=== PATIENT | female | born 1980 | race Caucasian/White ===

== ENCOUNTER → 2022-03-03 | Outpatient (CLI) | payer OTHER, SELFPAY ==
[2022-03-03 11:08] LABS: NATERA MAILED SPECIMEN
[2022-03-03 12:14] LABS: Protein, Urine (Random) 9.7 mg/dL (<11.9); Protein:Creat Ratio 181 mg/g CRE (0-200)
[2022-03-03 12:26] LABS: ALB/GLOB Ratio 0.8 RATIO (0.9-2.4); AST(SGOT) 20 U/L (15-37); Alanine Aminotransfer ALT/SGPT 35 U/L (13-56); Albumin, Serum 3.3 g/dL (3.2-5.0); Alkaline Phosphatase 59 U/L (45-117); Anion Gap 8 (5-15); BUN 9 mg/dL (7-18); BUN/Creat Ratio 13.1 RATIO (10-20); Calcium,Total 9.5 mg/dL (8.5-10.1); Chloride 105 mmol/L (98-107); Creatinine, Serum 0.68 mg/dL (0.55-1.02); EST Glomerular Filtration Rate 101 mL/min (>60); Est Glom Filt Rate - Afr Amer 123 mL/min (>60); Globulin 4.1 g/dL (2.2-4.2); Glucose 77 mg/dL (74-106); Potassium 4.1 mmol/L (3.5-5.1); Protein, Total 7.4 g/dL (6.4-8.2); Sodium Level 138 mmol/L (136-145)
== END | disposition home or self-care (01) ==
PROVIDERS: PCP Family Medicine; Referring Provider Obstetrics & Gynecology; Visit Provider Obstetrics & Gynecology
DX: O09.522 Supervision of elderly multigravida, second trimester (principal)
CPT/HCPCS: 36415; 80053; 82570; 84156

== ENCOUNTER → 2022-03-31 | Outpatient (CLI) | payer OTHER, SELFPAY ==
--- NOTE | 2022-03-31 12:07 | US_ITS ---
STUDY: SECOND AND THIRD TRIMESTER OBSTETRICAL ULTRASOUND REASON FOR EXAM: Female, 41 years old anatomy LMP: 10/31/2021. TECHNIQUE: Transabdominal and Transvaginal TECHNICAL QUALITY: Adequate. PRIOR ULTRASOUND: None. FINDINGS: There is a single intrauterine fetus. The fetus is in a breech presentation. There is demonstrated cardiac activity with a heart rate of 145 bpm. There is a normal amniotic fluid volume. The largest amniotic fluid pocket measures 5.3 cm x 3.5 cm. The amniotic fluid index (KONRAD) is within normal limits. The placenta is anterior in location and is not low lying. There are Grade 0 placental changes. The cervix measures 4.6 cm in length. The bilateral adnexal regions are normal. BIOMETRY: BPD: 4.81 cm: 20 weeks, 4 days HC: 17.96 cm: 20 weeks, 3 days AC: 15 cm: 20 weeks, 2 days FL: 3.16 cm: 90 weeks, 6 days CI: 77% FL/BPD: 66% FL/HC: FL/AC: 21% HC/AC: 1.2 age by current US: 20 weeks, 2 days. JESSICA by current US: 08/16/2022. Estimated weight: 334 grams, +/- 50 grams, 3 %. Age by LMP: 21 weeks, 4 days. JESSICA by LMP: 08/07/2022. ANATOMY: Gender: Female Cranium: Normal lateral ventricles. Normal choroid plexus. Normal cerebellum. Normal cisterna magna. Normal face, nose and lips. Chest: Normal 4-chamber heart. Abdomen/Pelvis: Normal diaphragm. Normal stomach. Normal abdominal wall. Normal cord insertion. The placental cord insertion is located at 1.3 cm away from the end of the placenta. Normal 3 vessel cord. Normal kidneys. Normal bladder. Spine: Normal cervical spine. Normal thoracic spine. Normal lumbar spine. Normal sacrum. Extremities: Normal bilateral upper extremities. Normal bilateral lower extremities. IMPRESSION: Single live uterine gestation with a mean gestational age of 20 weeks and 2 days. The placental cord insertion is located 1.3 cm away from the margin of the placenta. Electronically Signed: Juan Miguel Augustin MD at 13:25 EDT , STUDY: FIRST TRIMESTER OBSTETRICAL ULTRASOUND REASON FOR EXAM: Female, 41 years old . Cervical length. LMP: 10/31/2021. TECHNIQUE: Transvaginal TECHNICAL QUALITY: Adequate. PRIOR ULTRASOUND: None. FINDINGS: The cervical length measures 4.6 cm. US/OB Anatomy Scan IMPRESSION: The cervical length measures 4.6 cm. Electronically Signed: Juan Miguel Augustin MD at 13:26 EDT ,
== END | disposition home or self-care (01) ==
LOC: OPUS 12:05
PROVIDERS: PCP Family Medicine; Visit Provider Nurse Practitioner Women's Health
DX: O09.512 Supervision of elderly primigravida, second trimester (principal); Z36.9 Encounter for antenatal screening, unspecified; Z3A.20 20 weeks gestation of pregnancy
CPT/HCPCS: 76805; 76817

== ENCOUNTER → 2022-05-12 | Outpatient (CLI) | payer OTHER, SELFPAY ==
[2022-05-12 09:42] LABS: Absolute Neutrophil Count 7.6 X10^3/uL (2.0-7.7); Basophil# 0.05 X10^3/uL; Basophil% 0.5 % (0-1); Eosinophil# 0.09 X10^3/uL; Eosinophils% 0.9 % (0-5); Hematocrit 35.2 % (37-47); Hemoglobin 11.6 g/dL (12.0-15.0); Lymphocyte % 16.1 % (19-41); Mean Corpuscular Hgb 28.9 pg (27.0-32.0); Mean Corpuscular Volume 87.6 fL (81-99); Mean Platelet Vol. 11.4 fl (6.2-12.0); Monocyte# 0.49 X10^3/uL; Monocyte% 4.9 % (0-10); NRBC Flagged by Analyzer 0 % (0-5); Neutrophil # 7.62 X10^3/uL (2.7-7.7); Platelet Count 235 K/mm3 (150-450); RBC Distribution Width CV 13.2 % (11.6-14.6); RBC Distribution Width SD 41.6 fl (35.1-43.9); Red Blood Count 4.02 M/mm3 (4.2-5.4); White Blood Count 9.9 K/mm3 (4.4-11.0)
[2022-05-12 09:54] LABS: Glucose Challenge Gest 1H 50g 179 mg/dL (70-140)
[2022-05-12 10:45] LABS: HIV - WCH Non-Reactive (Nonreactive); Syphilis Antibodies Non-reactive
== END | disposition home or self-care (01) ==
LOC: PAVLAB 09:18
PROVIDERS: PCP Family Medicine; Referring Provider Obstetrics & Gynecology; Visit Provider Obstetrics & Gynecology
DX: Z34.90 Encounter for supervision of normal pregnancy, unspecified, unspecified trimester (principal)
CPT/HCPCS: 36415; 82950; 85025; 86703; 86780

== ENCOUNTER → 2022-05-17 | Outpatient (CLI) | payer OTHER, SELFPAY ==
--- NOTE | 2022-05-17 12:52 | US_ITS ---
STUDY: OBSTETRICAL ULTRASOUND - BIOPHYSICAL PROFILE REASON FOR EXAM: Female, 41 years old growth and monitor placenta -- Wkly Tuesday''s beginning 05/17/22.Stop 08/03/22 -- IUGR AND MARGINAL CORD INSERT -- AMA -- GESTATIONAL HYPERTENSION LMP: 10/31/2021. PRIOR ULTRASOUND: Comparison is made with prior study 03/31/2022. TECHNIQUE: Transabdominal TECHNICAL QUALITY: Adequate. FINDINGS: There is a single intrauterine fetus. The fetus is in a breech presentation. There is demonstrated cardiac activity with a heart rate of 162 bpm. There is a normal amniotic fluid volume. The largest amniotic fluid pocket measures 5 cm x 3.4 cm. The amniotic fluid index (KONRAD) is 13.7 cm. The placenta is anterior in location and is not low lying. There are Grade 0 placental changes. Age by LMP: 28 weeks, 2 days. JESSICA by LMP: 08/07/2022. age by prior US: 26 weeks, 6 days. JESSICA by prior US: 08/17/2022. BIOPHYSICAL PROFILE: Breathing Movements (FBM): 2 Gross Body Movements (GBM): 2 Tone (FT): 2 Amniotic Fluid Volume (AFV): 2 TOTAL SCORE: 8 / 8 US/Biophysical Prof W/O Non Stres IMPRESSION: Normal biophysical profile of 01/25. Electronically Signed: Juan Miguel Augustin MD at 10:37 EST ,
== END | disposition home or self-care (01) ==
LOC: OPUS 12:51
PROVIDERS: PCP Family Medicine; Visit Provider Obstetrics & Gynecology
DX: O09.529 Supervision of elderly multigravida, unspecified trimester (principal); Z87.59 Personal history of other complications of pregnancy, childbirth and the puerperium
CPT/HCPCS: 76819

== ENCOUNTER → 2022-05-19 | Outpatient (CLI) | payer OTHER, SELFPAY ==
[2022-05-19 10:57] LABS: Glucose GTT-Gestation. Fasting 82 mg/dL (<105)
[2022-05-19 11:19] LABS: Glucose GTT-Gestational 1 Hr 187 mg/dL (<190)
[2022-05-19 12:35] LABS: Glucose GTT-Gestational 2 Hr 163 mg/dL (<165)
[2022-05-19 13:59] LABS: Glucose GTT-Gestational 3 Hr 74 L (<145)
== END | disposition home or self-care (01) ==
LOC: LAB 09:56
PROVIDERS: PCP Family Medicine; Referring Provider Obstetrics & Gynecology; Visit Provider Obstetrics & Gynecology
DX: Z13.1 Encounter for screening for diabetes mellitus (principal)
CPT/HCPCS: 36415; 82951; 82952

== ENCOUNTER → 2022-05-26 | Outpatient (CLI) | payer OTHER, SELFPAY | END | disposition home or self-care (01) | LOC: LABSPEC 12:08 | PROVIDERS: PCP Family Medicine; Visit Provider Obstetrics & Gynecology | DX: Z34.90 Encounter for supervision of normal pregnancy, unspecified, unspecified trimester (principal) | CPT/HCPCS: 87086; 87088 ==

== ENCOUNTER 2022-06-08 08:30 | Outpatient (RCR) | payer OTHER, SELFPAY | END 2022-06-19 23:59 | LOC: DC 08:30 | PROVIDERS: PCP Family Medicine; Visit Provider Obstetrics & Gynecology | DX: O24.419 Gestational diabetes mellitus in pregnancy, unspecified control (principal); Z3A.00 Weeks of gestation of pregnancy not specified | CPT/HCPCS: 97802; 97803 ==

== ENCOUNTER → 2022-06-18 | Outpatient (CLI) | payer OTHER, SELFPAY ==
[2022-06-18 12:33] LABS: Hepatitis C Antibody Non-Reactive (Nonreactive)
== END | disposition home or self-care (01) ==
LOC: LAB 10:44
PROVIDERS: PCP Family Medicine; Visit Provider Obstetrics & Gynecology
DX: O09.529 Supervision of elderly multigravida, unspecified trimester (principal)
CPT/HCPCS: 36415; 86803; 86850; 86900; 86901

== ENCOUNTER → 2022-07-01 | Outpatient (CLI) | payer OTHER, SELFPAY ==
[2022-07-01 17:21] LABS: Chlamydia Trachomatis by PCR Negative (Negative); Neisserai gonorrhoeae by PCR Negative (Negative); Probe Check PASS; Sample Adequacy Control PASS; Specimen Processing Control PASS
== END | disposition home or self-care (01) ==
PROVIDERS: PCP Family Medicine; Referring Provider Obstetrics & Gynecology; Visit Provider Obstetrics & Gynecology
DX: O09.529 Supervision of elderly multigravida, unspecified trimester (principal); Z3A.00 Weeks of gestation of pregnancy not specified
CPT/HCPCS: 87491; 87591

== ENCOUNTER → 2022-07-16 | Outpatient (CLI) | payer OTHER, SELFPAY | END | disposition home or self-care (01) | PROVIDERS: PCP Family Medicine; Referring Provider Obstetrics & Gynecology; Visit Provider Obstetrics & Gynecology | DX: Z34.90 Encounter for supervision of normal pregnancy, unspecified, unspecified trimester (principal) | CPT/HCPCS: 87081 ==

== ENCOUNTER 2022-08-04 05:07 | Inpatient (IN) | payer OTHER, SELFPAY ==
[2022-08-04] VITALS (28 sets, daily range): BP systolic 97–138; BP diastolic 47–86; PULSE 55–111; RESP 11–18; TEMP 36.1–36.6; O2SAT 95–100; BMI 30.5
[2022-08-04] MEDS: Lactated Ringers 1,000 ML 999 ML IV ×2 (05:50→17:25)
[2022-08-04 06:04] LABS: Absolute Lymphocyte Count 1.63 X10^3/uL (0.83-4.51); Absolute Neutrophil Count 4.4 X10^3/uL (2.0-7.7); Basophil# 0.04 X10^3/uL; Basophil% 0.6 % (0-1); Eosinophil# 0.06 X10^3/uL; Eosinophils% 0.9 % (0-5); Hematocrit 36.8 % (37-47); Hemoglobin 11.9 g/dL (12.0-15.0); Lymphocyte # 1.63 X10^3/ul (0.83-4.51); Lymphocyte % 24.3 % (19-41); Mean Corp Hgb Conc 32.3 g/dL (32-36); Mean Corpuscular Hgb 28.5 pg (27.0-32.0); Mean Platelet Vol. 12.8 fl (6.2-12.0); Monocyte% 7.5 % (0-10); NRBC Flagged by Analyzer 0 % (0-5); Neutrophil # 4.44 X10^3/uL (2.7-7.7); Neutrophil % 66.3 % (47-70); Platelet Count 167 K/mm3 (150-450); RBC Distribution Width CV 14.9 % (11.6-14.6); Red Blood Count 4.18 M/mm3 (4.2-5.4); White Blood Count 6.7 K/mm3 (4.4-11.0)
[2022-08-04 06:20] LABS: Bedside Glucose 76 mg/dL (74-106)
[2022-08-04] MEDS: Lactated Ringers 1,000 ML 150 ML IV (06:25)
[2022-08-04] MEDS: Acetaminophen 500 MG Tablet 1000 MG PO ×2 (07:03→21:05)
[2022-08-04] MEDS: Sodium Citrate/Citric Acid 30 ML UDC PO (07:04)
--- NOTE | 2022-08-04 07:07 | PCM.HP.OB ---
HPI - General General Date of Admission: 08/04/22 HPI Narrative PARVIZ PEREZ, is a 41 y/o@ 39 weeks who presents to L&D for a repeat section. She has a history of one vaginal delivery followed by a section. Due to AMA, gestational diabetes and abnormal placental cord insertion, [facility] recommends delivery at 39 weeks. She initially wanted to , however her cervix is 1/thick/high and not favorable for IOL with prior uterine scar. The decision was made to proceed with a repeat section. Maternal Data Information JESSICA Calculator Estimated Delivery Date Method Current WG Current Estimate 08/07/22 LMP (Certain) 39w 4d PFSH PFSH Medical History History of gestational hypertension History of depression Home Medications ascorbic acid (vitamin C) 500 mg capsule mg PO 02/26/22 [History Last Taken Unknown] calcium citrate 250 mg PO DAILY 02/26/22 [History Last Taken Unknown] doxylamine succinate 25 mg tablet (Unisom (doxylamine)) 25 mg PO QHS PRN 02/26/22 [History Last Taken 08/03/22 21:00] famotidine 20 mg tablet (Pepcid) 20 mg PO DAILY 02/26/22 [History Last Taken 08/03/22 21:00 1 tab] magnesium oxide 500 mg capsule 500 mg PO DAILY 02/26/22 [History Last Taken 08/03/22 09:00] vitamin#30 30 mg iron-10 mg iron-folic acid 1 mg-omg3 capsule cap PO 02/26/22 [History Last Taken Unknown] vitamin E mixed 400 unit capsule unit PO 02/26/22 [History Last Taken Unknown] aspirin 81 mg chewable tablet 81 mg PO DAILY 03/24/22 [History Last Taken 08/03/22 21:00] ondansetron HCl 4 mg tablet 4 mg PO Q8H PRN nausea and vomiting #90 tabs 05/21/22 [Rx Last Taken 08/02/22 09:00] metformin 500 mg tablet 500 mg PO DAILY gdm 08/04/22 [History Last Taken 07/25/22 21:00] Allergy/AdvReac Type Severity Reaction Status Date / Time No Known Allergies Allergy Verified 08/04/22 05:55 Surgical History delivery delivered History of foot surgery History of neck surgery Social History current occupational exposures/hazards: No pets and animals: No Smoking Status: Never smoker alcohol intake: never substance use type: does not use what type of physical activity do you participate in: none seatbelt use: always additional social history: [facility] [address] 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 Date Name GA/Weeks Outcome Route Bth Weight Infant Gen Labor Lgth Anesthesia Del Locatn Provider FOB Unknown summer live - full term 6lbs 7oz Female none Pomerene Vacariello Jebon Unknown 2015 Lewis live - full term 39 [facility] Date: Last Updated by: Tejal Francois no complications Delivery Date: Last Updated by: Tejal Francois GHTN, decels ending in c/s Visit Details Expected Delivery Route/Plan TOLAC patient counseled regarding risks/benefits of trial of labor versus repeat . ACOG/uptodate education given to patient. 89 % likelihood of success per calculator TOLAC consent form signed: 06/18 Labor Preferences- CB/BF classes: [] labor support person: [] labor intervention preferences: [] pain management options preferred: [] cut cord/dad catch: [] : [] PP control planned: [] discussed possible routes of delivery and associated risks: [] special requests: [] Plans Covid status: [] Flu vaccine: [] Tdap vaccine: [] Rhogam: [] LARC form signed: [] Problem list reviewed and updated with the most current plan of care details and appropriate orders placed. Relevant counseling for the gestational age provided. Continue routine care and follow up unless otherwise noted in visit notes/problem list details OB Flowsheet Initial Weight: Not Recorded Date <del>?</del> EGA Weight BP Urine Prot <del>?</del> Glucose FHR FuHt Pres Dilation <del>?</del> Effaced St Visit Note 02/26/22 <del>?</del> 16w 6d 165 lb 134/88 <del>?</del> 150 <del>?</del> SM- LUCAS desires TOLAC no vb lof cramping 03/24/22 <del>?</del> 20w 4d 169 lb 132/85 Negative <del>?</del> Negative 152 <del>?</del> MH-No VB, LOF. Good FM. Feeling movement. Still with nausea but controlled with zofran. 05/26/22 <del>?</del> 29w 4d 177 lb 2 oz 127/85 Negative <del>?</del> Negative 140 29 <del>?</del> JArnold- pt is gestational diabetic and is monitoring glucose and seeing hazardous materials waste technician. She had IUGR but appears to be resolved per mfm. she has one more scan to know more. 06/18/22 <del>?</del> 32w 6d 176 lb 8 oz 131/79 Negative <del>?</del> Negative 145 33 <del>?</del> SM- no vb lof good fm no regular ctx BS controlled with diet SM- TOLAC consent signed, no vb lof good fm no regular ctx BS elevated with holidya- not following diet as closely but watching more, will call next week 07/01/22 <del>?</del> 34w 5d 173 lb 6 oz 129/85 Negative <del>?</del> Negative 140 33 Cephalic <del>?</del> JV- normal growth. was breech on us last week but cephalic today. glucose levels all wnl. 07/16/22 <del>?</del> 36w 6d 172 lb 8 oz 134/89 Negative <del>?</del> Negative 143 36 Cephalic 0.5 <del>?</del> 30 -3 JV- fasting levels over 95-105. starting metformin and twice weekly nsts. deliver at 39 weeks. pt still wants to . will go into more detail depending on cervical dilation. 07/20/22 <del>?</del> 37w 3d 171 lb 9.6 oz 135/86 Negative <del>?</del> Negative 140 Cephalic 0.5 <del>?</del> MH-NST only reactive. Did not start metformin. Glucose all but 1 below 95 and 2 hrs all but 2 below 120. Will discuss with SM 07/23. 07/23/22 <del>?</del> 37w 6d 173 lb 122/80 Negative <del>?</del> Negative 140 <del>?</del> SM- no vb lof good fm n oregular ctx 07/27/22 <del>?</del> 38w 3d 174 lb 2 oz 137/89 Negative <del>?</del> Negative 160 Cephalic 0.5 <del>?</del> 30 -3 JV- nst reactive. cx still not dilated. we talked about risks vs benefits of IOL and she has decided to have a rpt section if by next week still not dilated enough to start pit. pt declines hooper bulb and not a candidate for cytotec. rpt section request sent to clinical group to schedule 07/30/22 <del>?</del> 38w 6d 173 lb 6 oz 128/82 Negative <del>?</del> Negative 135 Cephalic 1 <del>?</del> 40 -3 LC- reactive NST. membranes striped today. c/s scheduled on 08/04 at 7:10. 08/03/22 <del>?</del> 39w 3d 171 lb 2 oz 130/88 Negative <del>?</del> Negative 130 <del>?</del> JV- nst reactive. section scheduled for tomorrow am. ROS Constitutional Constitutional: Denies change in weight, fatigue, fever(s), headache(s), poor appetite or weakness Eyes Eyes: Denies blurry vision, change in vision, seeing flashes or spots in vision ENT HEENT: Denies dizziness, headache(s), loss taste/smell or sore throat Cardiovascular Cardiovascular: Denies chest pain, dizziness, dyspnea, irregular heart rhythm, leg edema, palpitations, rapid heart rate or vomiting Respiratory/Chest Respiratory/Chest: Denies chest tightness, cough, dyspnea or breast pain Gastrointestinal Gastrointestinal: Denies abdominal pain, anorexia, constipation, cramping, diarrhea, hemorrhoids, vomiting or weight changes Genitourinary Genitourinary: Denies dysuria, flank pain, genital lesions, genital pain, urinary frequency or urinary urgency Musculoskeletal Musculoskeletal: Denies back pain, difficulty walking, joint pain, limited range of motion, muscle cramps or numbness Integumentary Integumentary: Denies lesions or unusual bruising Neurologic Neurologic: Denies abnormal movements, abnormal speech, dizziness, numbness, seizure-like activity or syncope Psychiatric Psychiatric: Denies anxiety, behavioral changes, change in appetite, change in libido, cognitive impairment, confusion, depression, difficulty concentrating, hallucinations or suicidal thoughts Endocrine Endocrinology: Denies excessive sweating, polydipsia or polyuria Hematologic/Lymphatic Hematologic/Lymphatic: Denies easy bleeding, easy bruising or lymphadenopathy Allergic/Immunologic Allergic/Immunologic: Denies itchy eyes, lip swelling, seasonal rhinorrhea, rhinitis, throat swelling, tongue swelling, eczemia, wheezing or asthma Vital Signs Vital Signs Vital Signs: 08/04/22 05:41 08/04/22 05:41 08/04/22 05:46 Temperature Temperature Source Pulse Rate 83 79 Respiratory Rate Blood Pressure Blood Pressure Mean Blood Pressure Source Blood Pressure Position Blood Pressure Location Pulse Ox 99 Oxygen Delivery Method 08/04/22 05:46 08/04/22 05:51 08/04/22 05:51 Temperature Temperature Source Pulse Rate 111 H Respiratory Rate Blood Pressure Blood Pressure Mean Blood Pressure Source Blood Pressure Position Blood Pressure Location Pulse Ox 100 99 Oxygen Delivery Method 08/04/22 05:56 08/04/22 05:56 08/04/22 06:01 Temperature Temperature Source Pulse Rate 81 81 Respiratory Rate Blood Pressure Blood Pressure Mean Blood Pressure Source Blood Pressure Position Blood Pressure Location Pulse Ox 99 Oxygen Delivery Method 08/04/22 06:01 08/04/22 06:06 08/04/22 06:06 Temperature Temperature Source Pulse Rate 83 Respiratory Rate Blood Pressure Blood Pressure Mean Blood Pressure Source Blood Pressure Position Blood Pressure Location Pulse Ox 100 100 Oxygen Delivery Method 08/04/22 06:11 08/04/22 06:11 08/04/22 06:10 Temperature 98 F Temperature Source Temporal Pulse Rate 83 100 Respiratory Rate 18 Blood Pressure 131/86 H Blood Pressure Mean 101 Blood Pressure Source Monitor Blood Pressure Position Semi-Fowlers Blood Pressure Location Right Arm Pulse Ox 99 99 Oxygen Delivery Method Room Air Weight Weight: 167 lb Body Mass Index (BMI) 30.5 Physical Exam Const alert, oriented x3, no apparent distress and healthy appearing General Appearance: cooperative; Negative for anxious HEENT normocephalic Face and Sinus: normal facial exam Eyes EOMs intact bilaterally and no scleral icterus General Eye: normal appearance of both eyes Neck full ROM and supple Lymph Lymphatic: no lymphadenopathy noted Chest Chest: abnormal inspection of the chest Resp normal respiratory effort Effort and Inspection: able to speak in complete sentences Cardio regular rate GI soft to palpation and non-tender Inspection: gravid Palpation: soft; Negative for tender external exam normal Back/Spine no CVA tenderness Extremity normal to inspection, full ROM and no clubbing, cyanosis or edema General Extremity: Negative for calf tenderness or edema Skin Lesions: no lesions Rashes: no rashes Psych mental status grossly normal Labs Labs Labs: Blood Type O POSITIVE Antibody Screen NEGATIVE Hct 36.8 % (37-47) L Hgb 11.9 g/dL (12.0-15.0) L Obstetrics US Syphilis Total Ab Non-reactive HIV 1&2 Antibody Non-Reactive (Nonreactive) Glucose 1 Hr 50 gm 179 mg/dL (70-140) H Assessment & Plan (1) Gestational diabetes mellitus (GDM) affecting : COMMENT: Checking BS and nutrition referral sent; did not start metformin (2) Abnormal glucose affecting : COMMENT: 3 Hr GTT (3) AMA (advanced maternal age) multigravida 35+: COMMENT: genetic counseling options discussed and plan NIPT. plan 36 week growth us delivery by 40 weeks. (4) : QUALIFIERS: Weeks of gestation: 39 weeks Qualified Code(s): Z3A.39 - 39 weeks gestation of COMMENT: GBS neg, LUCAS Calvo family. NIPT low risk, abnormal cord insertion & 3% growth, MFM referral- 05/20/22 repeat shows 16th%, continuing with growth follow ups with mfm. (5) History of delivery: COMMENT: plan TOLAC consent signed 06/18, 89% chance of success (6) History of depression: (7) History of gestational hypertension: COMMENT: baseline labs ordered. (8) Supervision of normal : COMMENT: PRR JESSICA 08/07/22, girl, Summer, Neris Vivek (works in [employer]) PLAN: Plan plan for repeat section today ERAS protocol ordered
[2022-08-04] MEDS: Cefazolin 2 GM in 0.9% Normal Saline 100 ML IV (07:16)
--- NOTE | 2022-08-04 08:18 | EX.PCM.OBRPT ---
Assessment & Plan (1) Gestational diabetes mellitus (GDM) affecting : COMMENT: Checking BS and nutrition referral sent; started metformin then stopped. patient declined treatment (2) Abnormal glucose affecting : COMMENT: 3 Hr GTT (3) AMA (advanced maternal age) multigravida 35+: COMMENT: genetic counseling options discussed and plan NIPT. plan 36 week growth us delivery by 40 weeks. (4) : QUALIFIERS: Weeks of gestation: 39 weeks Qualified Code(s): Z3A.39 - 39 weeks gestation of COMMENT: GBS neg, LUCAS Calvo family. NIPT low risk, abnormal cord insertion & 3% growth, MFM referral- 05/20/22 repeat shows 16th%, continuing with growth follow ups with mfm. (5) History of delivery: COMMENT: plan TOLAC consent signed 06/18, 89% chance of success (6) History of depression: (7) History of gestational hypertension: COMMENT: baseline labs ordered. (8) Supervision of normal : COMMENT: PRR JESSICA 08/07/22, girl, [facility], Neris Vivek (works in [employer]) Maternal Data Information JESSICA Calculator Estimated Delivery Date Method Current WG Current Estimate 08/07/22 LMP (Certain) 39w 4d Final JESSICA: 08/07/22 Final JESSICA Source: LMP Gestational age: 39 weeks 4 days Details Operative Information Date of Procedure: 08/04/22 Pre-Operative Diagnosis: @ 39 weeks 4 days, prior section, gestational diabetes, abnormal cord insertion Post-Operative Diagnosis: @ 39 weeks 4 days, prior section, gestational diabetes, abnormal cord insertion Classification: Scheduled Procedure Type: low transverse abrasive grader helper #1: Daniella Ortega Type of Anesthesia: Spinal Anesthesiologist: Eugenio Gallardo Estimated Blood Loss: 500 Findings Description of Procedure: The patient is a 41 y/o @ 39 weeks 4 days presented for repeat . Spinal anesthesia was placed without difficulty. Mckeon catheter was placed. The patient was placed in the dorsal supine position with leftward tilt. Patient was prepped and draped in the normal sterile fashion. Pfannenstiel skin incision was made with the scalpel and carried through to the underlying layer of fascia with the scalpel. Fascia was nicked in the midline and the incision extended laterally. The rectus bellies were dissected off superiorly and inferiorly with out complication both sharply and bluntly. The peritoneum was entered digitally. The incision was stretched and a low transverse uterine incision was made with the scalpel. The 's head was delivered atraumatically followed by the anterior and posterior shoulders without complication the rest of the infant delivered. The cord was clamped and cut and the infant was handed off to awaiting nurse. The placenta was delivered spontaneously immediately following and was noted to be intact and have a three-vessel cord. The uterus was exteriorized cleared of all clots and debris, and the incision was closed in a double layer closure using #1 Vicryl and #1 Monocryl. The ovaries and fallopian tubes were noted to be within normal limits. The uterus was returned to the maternal abdomen and gutters were cleared of all clots and debris. The peritoneum was closed with 3-0 Monocryl in a running fashion. Gloves were changed prior to fascial closure. Fascia was closed with 0 PDS in a running fashion. Subcutaneous tissue was copiously irrigated and the skin was closed with 3-0 Monocryl in a subcuticular fashion. Mepilex dressing was applied without complication. Patient was taken to recovery in stable condition. It was discussed with the patient that based on the clinical information obtained during this encounter, combined with her history, at this time I would recommend for future deliveries if further pregnancies are desired. Presentation: Positive for Vertex Amniotic Fluid Description: Clear Cord Vessel Description: 3 Vessels Cord Entanglement: None A Gender: Female (1 minute): 8 (5 minute): 9 Delayed Cord Clamping: No Complications Risks of Surgery Discussed w/Patient: Bleeding, Anesthesia Risks, Infection, Need for Future C-Sections and Injury to surrounding structure(s) including bowel and bladder Multi Select Codes Urinary/Genital Urinary/Genital CPT Codes: 79995 Delivery [facility]
--- NOTE | 2022-08-04 08:29 | DCINST_ITS ---
Discharge Instructions Diet Discharge Diet: No restrictions Activity Discharge Activity: May Not Drive (for 2 weeks or while taking narcotic pain medications.), May Shower and May Take a Tub Bath (in 7 days.) May resume sexual activity in: 4-6 weeks Weight Bearing Status: Full weight bearing Lifting Restrictions: 20 pounds Dressing / Incision Call your doctor if your incision/area has: Continuous Slow Oozing, Sudden Increased Bleeding, Increased Pain/ Swelling, Increased Redness and Foul Smelling Discharge Call your doctor if you observe: Fever of 101 or Higher and Using more than 1 pad per hour Suture Line Care: Avoid Pulling/Pushing and Avoid Pinching/Bending Cleanse incision/area with: Soap & Water and Keep Dressing Clean & Dry Follow Up Care Please Follow Up With: Regina Quan DO When: Call [phone] to make an appointment for an incision check in 1-2 weeks. Test Results: Test results from this visit will be discussed in further detail at your follow- up appointment, if applicable. Discharge Plan Admission Admit Date/Time: 08/04/22 05:07 Primary Reason for Your Visit: section Attending Provider: Regina Quan Primary Care Provider: Elliot Curry Discharge Orders/Prescriptions Prescriptions: New oxycodone-acetaminophen [Percocet] 5-325 mg tablet 1 tab PO Q4H PRN (Reason: pain) 7 Days Qty: 30 0RF Rx Instructions: 1-2 tabs q 4 hrs as needed for pain naproxen 500 mg tablet 500 mg PO BID PRN (Reason: pain) Qty: 30 0RF Continued PNV #[id number] 30 mg iron-10 mg iron-1 mg capsule PO ascorbic acid (vitamin C) 500 mg capsule PO famotidine [Pepcid] 20 mg tablet 20 mg PO DAILY magnesium oxide 500 mg capsule 500 mg PO DAILY calcium citrate 250 mg calcium tablet 250 mg PO DAILY vitamin E mixed 400 unit capsule PO ondansetron HCl 4 mg tablet 4 mg PO Q8H PRN (Reason: nausea and vomiting) Qty: 90 1RF Discontinued Unisom (doxylamine) 25 mg tablet 25 mg PO QHS PRN (Reason: ) aspirin 81 mg tablet,chewable 81 mg PO DAILY metformin 500 mg tablet 500 mg PO DAILY Rx Instructions: daily before bedtime Referrals / Follow Up: Elliot Curry MD [Primary Care Provider] - Disposition Disposition (needs filled in before D/C Order can be placed): Home, Self Care
[2022-08-04] MEDS: Oxytocin 15 Units/NS 250ml 15 UNITS/250 ML IV.SOLN 83 UNITS IV (08:30)
[2022-08-04] MEDS: proCHLORPERazine 10 MG/2 ML Vial IV (09:42)
[2022-08-04] MEDS: Ketorolac 30 MG/ML Syringe IV ×3 (09:42→21:05)
[2022-08-04 11:06] LABS: Bedside Glucose 100 mg/dL (74-106)
[2022-08-04] MEDS: Lactated Ringers 1,000 ML 100 ML IV (11:45)
[2022-08-04] MEDS: Ondansetron 4 MG/2 ML Vial IV ×2 (11:45→17:02)
--- NOTE | 2022-08-04 16:53 | NURSING ---
pt continues with symptoms of vertigo and N/V with moving; pt to side of bed - became dizzy and started vomiting; pt returned to bed
[2022-08-04 18:00] LABS: Bedside Glucose 90 mg/dL (74-106)
--- NOTE | 2022-08-04 19:13 | NURSING ---
1900 tolerated up to chair without vomiting
--- NOTE | 2022-08-04 20:45 | CPS ---
Incentive spirometry instructed by Nurse. Pt was nursing baby at time.
[2022-08-05 00:45] VITALS: BP 112/70; PULSE 67; RESP 16; TEMP 36.5; O2SAT 96
[2022-08-05] MEDS: Ketorolac 30 MG/ML Syringe IV (03:24)
[2022-08-05] MEDS: Acetaminophen 500 MG Tablet 1000 MG PO ×2 (03:24→09:01)
[2022-08-05] MEDS: 0.9% Saline Lock 10 ML Syringe IV ×2 (03:24→09:01)
[2022-08-05 03:47] VITALS: BP 129/81; PULSE 73; RESP 16; TEMP 36.9; O2SAT 97
[2022-08-05 05:28] LABS: Hemoglobin 10.3 g/dL (12.0-15.0); Mean Corp Hgb Conc 32.2 g/dL (32-36); Mean Corpuscular Hgb 28.8 pg (27.0-32.0); Mean Corpuscular Volume 89.4 fL (81-99); Mean Platelet Vol. 12.5 fl (6.2-12.0); Platelet Count 173 K/mm3 (150-450); RBC Distribution Width CV 15.1 % (11.6-14.6); RBC Distribution Width SD 47.7 fl (35.1-43.9); Red Blood Count 3.58 M/mm3 (4.2-5.4); White Blood Count 10.8 K/mm3 (4.4-11.0)
[2022-08-05 05:56] LABS: Bedside Glucose 87 mg/dL (74-106)
--- NOTE | 2022-08-05 08:39 | PCM.PN.OB ---
Subjective Subjective Patient is laying in bed comfortably without complaints. She states that she slept on an off during the night. Lochia is mild and pain is minimal. She would like to go home today if possible Objective Data Objective Data Vital Signs: Vital Signs Temp Pulse Resp BP Pulse Ox O2 Del Method 98.4 F 73 16 129/81 H 97 Room Air 08/05/22 03:47 08/05/22 03:47 08/05/22 03:47 08/05/22 03:47 08/05/22 03:47 08/05/22 03:47 Oxygen Delivery Method Room Air Weight: 167 lb Body Mass Index (BMI) 30.5 Intake & Output: Intake and Output for Last 24 Hours 08/03/22 08/04/22 08/05/22 23:59 23:59 23:59 Intake Total 3403.34 / 3403.34 Output Total 2450 / 2450 500 / 500 Balance 953.34 / 953.34 -500 / -500 Lab / Micro Data Result Diagrams: 08/05/22 05:00 Labs: Laboratory Results - last 24 hr 08/04/22 10:13: POC Glucose 100 08/04/22 17:33: POC Glucose 90 08/05/22 05:00: WBC 10.8, RBC 3.58 L, Hgb 10.3 L, Hct 32.0 L, MCV 89.4, MCH 28.8, MCHC 32.2, RDW Std Deviation 47.7 H, RDW Coeff of Jeffery 15.1 H, Plt Count 173, MPV 12.5 H 08/05/22 05:19: POC Glucose 87 ROS Constitutional Constitutional: Reports systems reviewed and no addt'l complaints, except as documented Cardiovascular Cardiovascular: Denies chest pain, dizziness, dyspnea or irregular heart rhythm Respiratory/Chest Respiratory/Chest: Denies cough, pain on inspiration or shortness of breath at rest Gastrointestinal Gastrointestinal: Denies abdominal pain, nausea or vomiting Genitourinary Genitourinary: Denies burning urination Musculoskeletal Musculoskeletal: Denies muscle cramps, muscle spasms or muscle weakness Neurologic Neurologic: Denies confusion, dizziness, headache(s) or lack of coordination Psychiatric Psychiatric: Denies anxiety, behavioral changes or depression Physical Exam HEENT normocephalic Resp normal respiratory effort and normal air movement GI soft to palpation, non-tender and non-distended Rectal Exam: other Other Details: Incision is clean, dry, and intact no CVA tenderness Extremity normal to inspection General Extremity: edema bilateral (trace ) Assessment & Plan (1) Status post section: COMMENT: bb girl gabriella - JV (2) Gestational diabetes mellitus (GDM) affecting : COMMENT: Checking BS and nutrition referral sent; started metformin then stopped. patient declined treatment (3) Abnormal glucose affecting : COMMENT: 3 Hr GTT (4) AMA (advanced maternal age) multigravida 35+: COMMENT: genetic counseling options discussed and plan NIPT. plan 36 week growth us delivery by 40 weeks. (5) : QUALIFIERS: Weeks of gestation: 39 weeks Qualified Code(s): Z3A.39 - 39 weeks gestation of COMMENT: GBS neg, LUCAS Calvo family. NIPT low risk, abnormal cord insertion & 3% growth, MFM referral- 05/20/22 repeat shows 16th%, continuing with growth follow ups with mfm. (6) History of delivery: COMMENT: plan TOLAC consent signed 06/18, 89% chance of success (7) History of depression: (8) History of gestational hypertension: COMMENT: baseline labs ordered. (9) Supervision of normal : COMMENT: PRR JESSICA 08/07/22, girl, Summer, Neris Vivek (works in [employer]) PLAN: Plan s/p LTCS PPD # 1 1. routine post care 2. breast feeding- support given 3. rh positive 4. rubella immune 5. plan for dc today if stable per peds
[2022-08-05] MEDS: Naproxen 500 MG Tablet PO (09:01)
[2022-08-05] MEDS: Senna/Docusate Sodium 1 Tablet PO (09:02)
[2022-08-05 09:09] VITALS: BP 110/80; PULSE 78; RESP 16; TEMP 36.9; O2SAT 98
[2022-08-05] MEDS: Famotidine 20 MG Tablet PO (10:44)
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
--- NOTE | 2022-08-05 11:36 | NURSING ---
Infant scheduled to follow up with [facility] on Tuesday08/07/2022 at 1030 for initial follow up.
== END 2022-08-05 13:15 | disposition home or self-care (01) | DRG 788 ==
PROVIDERS: Admitting Provider Obstetrics & Gynecology; PCP Family Medicine; Visit Provider Obstetrics & Gynecology
PROC: 10D00Z1 Extraction of Products of Conception, Low, Open Approach (ICD-10-PCS; CPT 59514; principal; 2022-08-04 06:55)
DX: O34.211 Maternal care for low transverse scar from previous cesarean delivery (principal); O24.425 Gestational diabetes mellitus in childbirth, controlled by oral hypoglycemic drugs; O43.893 Other placental disorders, third trimester; Z37.0 Single live birth; Z3A.39 39 weeks gestation of pregnancy; Z87.59 Personal history of other complications of pregnancy, childbirth and the puerperium
CPT/HCPCS: 59025; 59050; 82962; 85025; 85027; 86850; 86900; 86901; 94762; 99221; J7120; A4216; G0378; J2405

== ENCOUNTER → 2022-09-16 | Outpatient (CLI) | payer OTHER, SELFPAY ==
[2022-09-23 17:00] LABS: HPV APTIMA, High Risk Negative (Negative)
== END | disposition home or self-care (01) ==
LOC: LABSPEC 13:03
PROVIDERS: PCP Family Medicine; Referring Provider Obstetrics & Gynecology; Visit Provider Obstetrics & Gynecology
DX: Z12.4 Encounter for screening for malignant neoplasm of cervix (principal)
CPT/HCPCS: 87624; 88175; G0145

== ENCOUNTER → 2023-02-09 | Outpatient (CLI) | payer OTHER, SELFPAY ==
[2023-02-09 11:07] LABS: Hemoglobin A1c 5.1 % (3.8-5.6)
== END | disposition home or self-care (01) ==
LOC: LAB 09:31
PROVIDERS: PCP Family Medicine; Referring Provider Obstetrics & Gynecology; Visit Provider Obstetrics & Gynecology
DX: Z86.32 Personal history of gestational diabetes (principal)
CPT/HCPCS: 36415; 83036